=== PATIENT | female | born 1950 | race Caucasian/White ===

== ENCOUNTER 2017-09-02 06:48 | Emergency (ER) | payer BC ==
[~2017-09-02] VITALS: Ht 165.1 cm; Wt 83.5 kg
[~2017-09-02 06:48] MED LIST: ACET325 PO; ACYC400 PO; ALPR.5; ALPR.5 PO; ASCO500 PO; ASPI81CH PO; ATOR40TA PO; B-COMPLEX PLUS1 EACH; Co Q-1010 MG; Daily Multiple1 EACH PO; ERGO400; ERYT.5TO BOTHEYES; FAMO20 PO; FISH1000; Fiber Tabs625 MG; Flonase 0.05% N16 GM; HYDACE5 PO; KRILL OIL500 MG; LAVAP17G PO; LOVA40; LOVA40 PO; MECL25 PO; MILK THISTLE1 GM; MULVITMINF; NAPR500 PO; NITR.4SL SL; Norco 5-325 Ta1 EACH PO; PROBIOTIC1 EAC1; PSEU120ER PO; Pseudoephedrine30 MG PO; RXHYDACE PO; SERT50; TRAZ50; VALA500 PO; VALD10; ZEBUTAL 50-3251 EACH PO; Zantac150 MG PO
[2017-09-02 07:45] LABS: Calcium, Ionized (POC) 1.13 mmol/L (1.10-1.46); Chloride (POC) 102 mmol/L (98-108); Creatinine (POC) 0.9 mg/dL (0.6-1.0); Glucose (ISTAT POC) 110 mg/dL (70-99); Hemoglobin (POC) 14.3 g/dL (12.0-16.0); Potassium (POC) 4.1 mmol/L (3.5-5.5); Sodium (POC) 140 mmol/L (135-148); Total CO2 (POC) 27 mmol/L (21-32)
[2017-12-30] MEDS ORDERED: Aspir 8181 MG PO (10:04)
[2018-05-18] MEDS ORDERED: XARELTO10 MG PO (21:56)
[2018-06-22] MEDS ORDERED: K-Dur20 MEQ PO (20:17)
== END 2017-09-02 08:18 | disposition home or self-care (01) ==
LOC: ER 06:48
PROVIDERS: Emergency Medicine
DX: S86.911A Strain of unspecified muscle(s) and tendon(s) at lower leg level, right leg, initial encounter (principal); X58.XXXA Exposure to other specified factors, initial encounter; Z79.899 Other long term (current) drug therapy
CPT/HCPCS: 36415; 80047; 85014; 99283

== ENCOUNTER 2017-09-17 18:52 | Emergency (ER) | payer BC ==
[~2017-09-17] VITALS: Ht 165.1 cm; Wt 89.8 kg
[2017-09-17 20:08] LABS: BASOPHILS ABSOLUTE AUTO 0.07 K/mm3 (0.00-0.23); BASOPHILS PERCENT AUTO 1 % (0-2); EOSINOPHILS ABSOLUTE AUTO 0.21 K/mm3 (0.00-0.68); EOSINOPHILS PERCENT AUTO 2 % (0-6); Hematocrit 42.5 % (33.0-51.0); Hemoglobin 14.3 g/dL (11.5-16.0); IMMATURE GRAN ABSOLUTE AUTO 0.02 K/mm3 (0.00-0.10); IMMATURE GRAN PERCENT AUTO 0 % (0-1); LYMPHOCYTES ABSOLUTE AUTO 2.18 K/mm3 (0.84-5.20); LYMPHOCYTES PERCENT AUTO 25 % (21-46); MONOCYTES ABSOLUTE AUTO 0.68 K/mm3 (0.16-1.47); MONOCYTES PERCENT AUTO 8 % (4-13); Mean Corpuscular HGB 28.9 pg (26.0-34.0); Mean Corpuscular HGB Conc 33.6 g/dL (31.5-36.5); Mean Corpuscular Volume 86 fL (80-100); Mean Platelet Volume 11.1 fL (9.1-12.4); NEUTROPHILS ABSOLUTE AUTO 5.47 K/mm3 (1.96-9.15); NEUTROPHILS PERCENT AUTO 63 % (41-73); Platelet Count 264 K/mm3 (150-400); RDW Standard Deviation 37.8 fL (35.1-46.3); Red Blood Cell Count 4.95 M/mm3 (3.80-5.20); White Blood Cell Count 8.63 K/mm3 (4.00-11.30)
[2017-09-17 20:24] LABS: Alanine Aminotransfer (ALT/SGP 24 U/L (12-78); Albumin, Blood 3.9 g/dL (3.4-5.0); Albumin/Globulin Ratio 1.1 (0.8-1.8); Alk Phos 68 U/L (50-136); Anion Gap 7 mmol/L (6-16); Aspartate Aminotrans (AST/SGOT 21 U/L (12-37); Bilirubin, Total 1.8 mg/dL (0.1-1.0); Blood Urea Nitrogen 12 mg/dL (8-24); CO2, Blood 26 mmol/L (21-32); Calcium, Blood 8.7 mg/dL (8.5-10.1); Chloride, Blood 104 mmol/L (98-108); Creatinine, Blood 0.86 mg/dL (0.40-1.00); Globulin, Blood 3.5 g/dL (2.2-4.0); Glomerular Filtration Rate >60 (60-); Glucose, Blood 93 mg/dL (70-99); Potassium, Blood 3.6 mmol/L (3.5-5.5); Sodium, Blood 137 mmol/L (136-145); Total Protein, Blood 7.4 g/dL (6.4-8.2)
[2017-09-17 21:47] LABS: Troponin I <0.015 ng/mL (0.000-0.040)
[2017-09-17] MEDS ORDERED: XARELTO20 MG PO (22:59)
[2017-12-30] MEDS ORDERED: Aspir 8181 MG PO (10:04)
[2018-05-18] MEDS ORDERED: XARELTO10 MG PO (21:56)
[2018-06-22] MEDS ORDERED: K-Dur20 MEQ PO (20:17)
== END 2017-09-18 01:07 | disposition home or self-care (01) ==
LOC: ER 18:52
PROVIDERS: Emergency Medicine
DX: R07.89 Other chest pain (principal); Z79.899 Other long term (current) drug therapy; E78.00 Pure hypercholesterolemia, unspecified; Z87.891 Personal history of nicotine dependence
CPT/HCPCS: 36415; 71046; 71260; 80053; 83880; 84484; 85025; 93005; 93010; 99284; J1885; Q9967

== ENCOUNTER 2017-12-30 08:57 | Day surgery (SDC) | payer BC, MEDICARE ==
[~2017-12-30] VITALS: Ht 165.1 cm; Wt 88.2 kg
[~2017-12-30 08:57] MED LIST changes: +Daily Multiple1 EACH; -Daily Multiple1 EACH PO; +XARELTO20 MG PO
[2017-12-30] MEDS ORDERED: Aspir 8181 MG (10:04)
== END 2017-12-30 11:03 | disposition home or self-care (01) ==
LOC: ORSCSDS 08:57
PROVIDERS: Internal Medicine Gastroenterology
PROC: 0D758ZZ Dilation of Esophagus, Via Natural or Artificial Opening Endoscopic (ICD-10-PCS; principal; 2017-12-30 10:15)
PROC: 0DB48ZX Excision of Esophagogastric Junction, Via Natural or Artificial Opening Endoscopic, Diagnostic (ICD-10-PCS; principal; 2017-12-30 10:15)
DX: R13.10 Dysphagia, unspecified (principal); K20.9 Esophagitis, unspecified; K22.2 Esophageal obstruction; K21.9 Gastro-esophageal reflux disease without esophagitis; E66.9 Obesity, unspecified; Z68.32 Body mass index [BMI] 32.0-32.9, adult; Z79.82 Long term (current) use of aspirin; Z87.891 Personal history of nicotine dependence; Z79.899 Other long term (current) drug therapy
CPT/HCPCS: 88305; 88312

== ENCOUNTER 2018-04-21 21:58 | Emergency (ER) | payer BC, MEDICARE ==
[~2018-04-21] VITALS: Ht 165.1 cm; Wt 84.8 kg
[~2018-04-21 21:58] MED LIST changes: +Aspir 8181 MG PO; -Daily Multiple1 EACH; +Daily Multiple1 EACH PO
[2018-04-21] MEDS ORDERED: Zantac150 MG PO (23:17)
== END 2018-04-22 | disposition home or self-care (01) ==
LOC: ER 21:58
DX: I80.01 Phlebitis and thrombophlebitis of superficial vessels of right lower extremity (principal); I47.1 Supraventricular tachycardia; Z88.5 Allergy status to narcotic agent; Z79.899 Other long term (current) drug therapy; Z79.82 Long term (current) use of aspirin; Z87.891 Personal history of nicotine dependence
CPT/HCPCS: 93971; 99283-25

== ENCOUNTER 2018-04-23 12:00 | Emergency (ER) | payer BC, MEDICARE ==
[~2018-04-23] VITALS: Ht 165.1 cm; Wt 84.8 kg
== END 2018-04-23 13:42 | disposition home or self-care (01) ==
LOC: ER 12:00
DX: I82.811 Embolism and thrombosis of superficial veins of right lower extremity (principal); Z88.5 Allergy status to narcotic agent; Z79.899 Other long term (current) drug therapy; Z79.82 Long term (current) use of aspirin; Z87.891 Personal history of nicotine dependence
CPT/HCPCS: 93971; 99283-25

== ENCOUNTER → 2018-07-07 | Outpatient (CLI) | payer BC, MEDICARE ==
[~2018-07-07] MED LIST changes: +K-Dur20 MEQ PO; +XARELTO10 MG PO
[2018-07-08 14:08] LABS: HPV 16 Negative (Negative); HPV 18 Negative (Negative); HPV OTHER HR TYPES Negative (Negative)
== END | disposition home or self-care (01) ==
LOC: LAB SHORT 11:29 → LAB 11:29
PROVIDERS: Obstetrics & Gynecology
DX: Z01.419 Encounter for gynecological examination (general) (routine) without abnormal findings (principal)
CPT/HCPCS: 87624; G0123

== ENCOUNTER 2019-05-30 09:45 | Day surgery (SDC) | payer BC, MEDICARE ==
[~2019-05-30] VITALS: Ht 165.1 cm; Wt 87.6 kg
[2019-05-30] MEDS ORDERED: VALA500 (10:15)
[2019-05-30] MEDS ORDERED: Ocuflox5 ML (10:16)
[2019-05-30] MEDS ORDERED: ASPI81CH (10:16)
== END 2019-05-30 11:55 | disposition home or self-care (01) ==
LOC: ORSCSDS 09:45
PROVIDERS: Internal Medicine Gastroenterology
PROC: 0DJ08ZZ Inspection of Upper Intestinal Tract, Via Natural or Artificial Opening Endoscopic (ICD-10-PCS; 2019-05-30)
PROC: 0D757ZZ Dilation of Esophagus, Via Natural or Artificial Opening (ICD-10-PCS; principal; 2019-05-30 11:15)
DX: K21.9 Gastro-esophageal reflux disease without esophagitis (principal); K22.2 Esophageal obstruction; F41.9 Anxiety disorder, unspecified; Z87.891 Personal history of nicotine dependence; E66.9 Obesity, unspecified; Z68.32 Body mass index [BMI] 32.0-32.9, adult; Z79.82 Long term (current) use of aspirin; Z79.899 Other long term (current) drug therapy
CPT/HCPCS: J2704; J7120

== ENCOUNTER → 2019-07-28 | Outpatient (CLI) | payer BC, MEDICARE ==
[~2019-07-28] MED LIST changes: +ASPI81CH; +Ocuflox5 ML; +VALA500
[2019-08-01 15:07] LABS: HPV 16 Negative (Negative); HPV 18 Negative (Negative); HPV OTHER HR TYPES Negative (Negative)
== END | disposition home or self-care (01) ==
LOC: LAB 14:20 → LAB SHORT 14:20
PROVIDERS: Obstetrics & Gynecology
DX: Z01.419 Encounter for gynecological examination (general) (routine) without abnormal findings (principal)
CPT/HCPCS: 87624; G0123

== ENCOUNTER 2020-04-14 20:06 | Emergency (ER) | payer OTHER ==
[~2020-04-14] VITALS: Ht 165.1 cm; Wt 87.1 kg
[2020-04-14] MEDS ORDERED: TUMERIC (23:03)
[2020-04-14] MEDS ORDERED: DERMACINRX5000 UNI1 PO (23:04)
[2020-04-14] MEDS ORDERED: ELDERBERRY PO (23:04)
[2020-04-14] MEDS ORDERED: VITAMIN B COMP0.4 MG PO (23:04)
[2020-04-14] MEDS ORDERED: L-Lysine500 M1 PO (23:05)
[2020-04-14] MEDS ORDERED: AIRBORNE (23:05)
[2020-04-14] MEDS ORDERED: FISH OIL-VIT D1 EACH PO (23:05)
== END 2020-04-14 23:13 | disposition home or self-care (01) ==
LOC: ER 20:06
DX: I87.2 Venous insufficiency (chronic) (peripheral) (principal); Z88.5 Allergy status to narcotic agent; Z87.891 Personal history of nicotine dependence
CPT/HCPCS: 93971

== ENCOUNTER → 2020-07-31 | Outpatient (CLI) | payer OTHER ==
[~2020-07-31] MED LIST changes: +AIRBORNE; +DERMACINRX5000 UNI1 PO; +ELDERBERRY PO; +FISH OIL-VIT D1 EACH PO; +L-Lysine500 M1 PO; +TUMERIC; +VITAMIN B COMP0.4 MG PO
[2020-08-02 15:09] LABS: HPV 16 Negative (Negative); HPV 18 Negative (Negative); HPV OTHER HR TYPES Negative (Negative)
== END | disposition home or self-care (01) ==
LOC: LAB 11:00 → LAB SHORT 11:00
PROVIDERS: Obstetrics & Gynecology
DX: Z01.419 Encounter for gynecological examination (general) (routine) without abnormal findings (principal)
CPT/HCPCS: 87624; G0123

== ENCOUNTER → 2021-04-04 | Outpatient (CLI) | payer OTHER ==
[2021-04-04 13:59] LABS: Stool Occult Bld Immuno 1 Negative (NEGATIVE)
== END | disposition home or self-care (01) ==
LOC: LAB SHORT 11:15
PROVIDERS: Internal Medicine Gastroenterology
DX: Z12.11 Encounter for screening for malignant neoplasm of colon (principal)
CPT/HCPCS: 82274

== ENCOUNTER 2021-07-20 16:46 | Emergency (ER) | payer OTHER ==
[~2021-07-20] VITALS: Ht 165.1 cm; Wt 86.2 kg
== END 2021-07-20 20:09 | disposition home or self-care (01) ==
LOC: ER 16:46
DX: M54.16 Radiculopathy, lumbar region (principal); Z88.5 Allergy status to narcotic agent; Z79.82 Long term (current) use of aspirin; Z79.899 Other long term (current) drug therapy
CPT/HCPCS: 93971; 99283-25

== ENCOUNTER 2022-01-28 00:04 | Emergency (ER) | payer OTHER ==
[~2022-01-28] VITALS: Ht 165.1 cm; Wt 81.7 kg
[2022-01-28] MEDS ORDERED: ELIQUIS5 M2 PO (02:56)
== END 2022-01-28 03:02 | disposition home or self-care (01) ==
LOC: ER 00:04
DX: I82.431 Acute embolism and thrombosis of right popliteal vein (principal); I82.451 Acute embolism and thrombosis of right peroneal vein; I82.890 Acute embolism and thrombosis of other specified veins; Z79.899 Other long term (current) drug therapy; Z79.82 Long term (current) use of aspirin; Z88.5 Allergy status to narcotic agent
CPT/HCPCS: 93971; 99283-25; A9270

== ENCOUNTER 2022-01-30 21:56 | Emergency (ER) | payer OTHER ==
[~2022-01-30] VITALS: Ht 165.1 cm; Wt 81.7 kg
[~2022-01-30 21:56] MED LIST changes: +ELIQUIS5 M2 PO
[2022-01-31] MEDS ORDERED: HYDR1TAB94 PO (10:34)
== END 2022-01-31 01:29 | disposition home or self-care (01) ==
LOC: ER 21:56
DX: I82.401 Acute embolism and thrombosis of unspecified deep veins of right lower extremity (principal); Z79.01 Long term (current) use of anticoagulants; Z88.5 Allergy status to narcotic agent; Z79.899 Other long term (current) drug therapy
CPT/HCPCS: 36415; 93005; 93010; 99283-25

== ENCOUNTER 2022-01-31 09:46 | Emergency (ER) | payer OTHER ==
[~2022-01-31] VITALS: Ht 165.1 cm; Wt 81.7 kg
[2022-01-31] MEDS ORDERED: HYDR1TAB94 PO (10:34)
== END 2022-01-31 10:45 | disposition home or self-care (01) ==
LOC: ER 09:46
DX: M79.661 Pain in right lower leg (principal); I82.409 Acute embolism and thrombosis of unspecified deep veins of unspecified lower extremity; D68.59 Other primary thrombophilia; Z88.5 Allergy status to narcotic agent; Z79.899 Other long term (current) drug therapy; Z79.82 Long term (current) use of aspirin; Z79.01 Long term (current) use of anticoagulants
CPT/HCPCS: 99283; A9270

== ENCOUNTER → 2023-05-29 | Outpatient (CLI) | payer OTHER ==
[~2023-05-29] MED LIST changes: +HYDR1TAB94 PO; +TRAM50 PO
== END ==
LOC: LAB 12:01 → LAB SHORT 12:01
DX: R07.9 Chest pain, unspecified (principal)
CPT/HCPCS: 84484

== ENCOUNTER 2023-06-02 23:30 | Emergency (ER) | payer OTHER ==
[~2023-06-02] VITALS: Ht 165.1 cm; Wt 82.5 kg
[~2023-06-02 23:30] MED LIST changes: -TRAM50 PO
[2023-06-03 06:36] LABS: Albumin, Blood 3.8 g/dL (3.4-5.0); Albumin/Globulin Ratio 1.1 (0.8-1.8); BASOPHILS ABSOLUTE AUTO 0.05 K/mm3 (0.00-0.23); BASOPHILS PERCENT AUTO 1 % (0-2); Bun/Creatinine Ratio 11.8 (12.0-20.0); Calcium, Blood 9.1 mg/dL (8.5-10.1); Creatinine, Blood 0.93 mg/dL (0.40-1.00); EOSINOPHILS ABSOLUTE AUTO 0.23 K/mm3 (0.00-0.68); EOSINOPHILS PERCENT AUTO 3 % (0-6); Globulin, Blood 3.6 g/dL (2.2-4.0); Hematocrit 42.1 % (33.0-51.0); Hemoglobin 14.6 g/dL (11.5-16.0); IMMATURE GRAN ABSOLUTE AUTO 0.02 K/mm3 (0.00-0.10); IMMATURE GRAN PERCENT AUTO 0 % (0-1); LYMPHOCYTES ABSOLUTE AUTO 1.66 K/mm3 (0.84-5.20); LYMPHOCYTES PERCENT AUTO 23 % (21-46); MONOCYTES ABSOLUTE AUTO 0.55 K/mm3 (0.16-1.47); MONOCYTES PERCENT AUTO 8 % (4-13); Mean Corpuscular HGB 29.7 pg (26.0-34.0); Mean Corpuscular HGB Conc 34.7 g/dL (31.5-36.5); Mean Corpuscular Volume 86 fL (80-100); Mean Platelet Volume 11.9 fL (9.1-12.4); NEUTROPHILS PERCENT AUTO 65 % (41-73); Platelet Count 259 K/mm3 (150-400); RDW Coefficient Variation 12.1 % (11.7-14.2); RDW Standard Deviation 37.7 fL (35.1-46.3); Red Blood Cell Count 4.91 M/mm3 (3.80-5.20); Total Protein, Blood 7.4 g/dL (6.4-8.2); White Blood Cell Count 7.21 K/mm3 (4.00-11.30)
[2023-06-03 07:26] VITALS: BP 126/107
[2023-06-03] MEDS ORDERED: TRAM50 PO (07:41)
== END 2023-06-03 07:43 | disposition home or self-care (01) ==
LOC: ER 23:30
PROVIDERS: Emergency Medicine
DX: R10.13 Epigastric pain (principal); Z88.5 Allergy status to narcotic agent; I47.10 Supraventricular tachycardia, unspecified; D68.59 Other primary thrombophilia; Z86.718 Personal history of other venous thrombosis and embolism; Z79.82 Long term (current) use of aspirin; Z79.01 Long term (current) use of anticoagulants; Z79.899 Other long term (current) drug therapy
CPT/HCPCS: 71260; 76705; 80053; 84484; 85025; 93005; 93010; 99284-25; A9270; J1885; Q9967